=== PATIENT | female | born 1965 | race Caucasian/White ===

== ENCOUNTER 2020-08-24 10:27 | Emergency (ER) | payer MEDICAID, SELFPAY ==
[2020-08-24] VITALS (9 sets, daily range): BP systolic 134–173; BP diastolic 82–125; PULSE 68–105; RESP 17–20; TEMP 36.2; O2SAT 96–99
--- NOTE | 2020-08-24 10:38 | ED.GENADUL_ITS ---
Discharge Plan Disposition Patient Disposition: HOME Condition: Good Discharge Details Clinical Impression: Abdominal pain Primary Care Provider: Maddie Fuller ED Provider: Irwin To Franklin Meds and New Rx's Prescriptions: New metoclopramide HCl 10 mg tablet,disintegrating 10 mg PO Q6H Qty: 30 RF: 0 sucralfate [Carafate] 100 mg/mL suspension 10 ml PO QACHS Qty: 420 RF: 0 lansoprazole 30 mg tablet,disintegrat, delay rel 30 mg PO DAILY Qty: 30 RF: 0 Discontinued naproxen sodium [Aleve] 220 mg Tablet 220 mg PO BID PRNRF: 0 Discharge Instructions Instructions: Abdominal Pain (ED) Additional Instructions: At this point I suspect your abdominal complaints are likely acid related in nature. Recommend discontinuing use of nonsteroidal medications. Occasional use of Tylenol is okay. Discontinue alcohol consumption. Cut back on tobacco use. Start medications as directed. Follow-up with primary care in 2 weeks for recheck. Return to ED if worse pain, persistent vomiting, fever, other concerns. Referrals: Maddie Fuller, [employer] [Primary Care Provider] - Medical Decision Making Patient presenting with abdominal pain. Given her alcohol use, smoking, nonsteroidal use and presentation suspect acid related disease/ulcer. Consider pancreatitis, gallbladder disease, liver disease. Will place IV and check laboratory studies. Will treat with Reglan, Protonix, Carafate. 11:45 - Patient feels much better after medications. Laboratory studies unremarkable. Sodium and chloride a little low but nothing of clinical significance. LFTs and lipase normal. Blood count normal. Suspect acid related disease as cause of discomfort, nausea, early satiety. We will continue medications on outpatient basis and have her follow-up with primary care. Discontinue nonsteroidal use. Decrease alcohol and tobacco use if possible. Would pick one to start with and she feels she can stop drinking alcohol without much difficulty. Smoking may be harder for her. Return to ED for chest pain, shortness of breath, new or worsening abdominal pain, persistent vomiting, other concerns. Lab Data Lab results reviewed: Yes I reviewed the patient's lab results. HPI General Mode of arrival: ambulatory . Date/Time Provider Initiated Documentation: 08/24/20 10:27 . Limitations to Documentation: no limitations . Information obtained by: patient and RN notes reviewed . HPI Narrative: Patient presents to the ED with abdominal pain. Patient reports having GI bug couple weeks ago with vomiting and diarrhea. She seemingly got better from this, but subsequently has developed episodic upper abdominal pain that radiates into the back and down into her lower abdomen. It is associated with a fairly persistent nausea. She has marked decrease in appetite. Eating food actually makes her feel worse. She is able to tolerate fluids relatively well. She continues to drink alcohol 4-6 beers a day. She smoked. She takes Aleve on a daily basis. She does not drink much caffeine. She denies any fever, cough, chest pain, shortness of breath. She reports pain being severe last night and was unable to sleep. She denies any prior surgery. She denies any significant medical problems and does not take prescription medications. She does see primary care on a fairly regular basis. Related Data Home Medications Medication Instructions Recorded Confirmed lansoprazole 30 mg PO DAILY #30 tab 08/24/20 metoclopramide HCl 10 mg PO Q6H #30 tab 08/24/20 sucralfate [Carafate] 10 ml PO QACHS #420 ml 08/24/20 Previous Rx's Medication Instructions Recorded lansoprazole 30 mg PO DAILY #30 tab 08/24/20 metoclopramide HCl 10 mg PO Q6H #30 tab 08/24/20 sucralfate [Carafate] 10 ml PO QACHS #420 ml 08/24/20 Allergies Allergy/AdvReac Type Severity Reaction Status Date / Time No Known Allergies Allergy Unverified 08/24/20 10:33 General Stated Complaint: Abd Prob LAILA: 3 Review of Systems Narrative: As documented in HPI otherwise negative as below. Const: no fever, chills, weakness Resp: no cough, SOB, pleuritic pain CV: no CP, diaphoresis, edema, syncope GI: no vomiting, diarrhea Neuro: no headache, numbness, focal weakness, confusion [facility] Medical History No significant past medical history Surgical History No significant past surgical history Family History Mother No problems noted. Father No problems noted. Sister No problems noted. Brother No problems noted. Daughter No problems noted. Daughter No problems noted. FAMILY HISTORY Arthritis Social History Smoking/Tobacco Use Status: Current every day Tobacco Type: cigarettes Smoking risk assessment performed?: Yes Alcohol Intake: current Alcohol Intake frequency: 3 or more drinks per day Alcohol type: beer Drug use: Daily Substance use type: marijuana Do you feel safe at home: Yes Do you feel safe in your relationship?: Yes Exam Narrative Exam Narrative: Const: WDWN female in NAD. HEENT: NC/AT. Normal facial exam. Eyes: Normal conjunctiva and sclera. Neck: Supple. Trachea midline. Lungs: Normal respiratory effort. Lungs are clear. Cor: RRR without murmur/gallop. Good radial pulses. GI: Soft. NT/ND. No guarding or rebound. Neuro: A+O x 3. Normal speech, mentation, gait. Cranial nerves II - XII grossly intact. No gross motor or sensory deficit. Ext: No C/C/E. Skin: Warm and dry without rash. Course Vital Signs Vital signs: Vital Signs Temperature 97.2 F L 08/24/20 10:30 Pulse 105 H 08/24/20 10:30 Respiratory Rate 20 08/24/20 10:30 Blood Pressure 173/125 H 08/24/20 10:30 Pulse Oximetry 99 08/24/20 10:30 Temperature 97.2 F L 08/24/20 10:30 Temperature Source Skin 08/24/20 10:30 Pulse 105 H 08/24/20 10:30 Respiratory Rate 20 08/24/20 10:30 Respiratory Effort Non-Labored 08/24/20 10:33 Blood Pressure 173/125 H 08/24/20 10:30 Blood Pressure Position Sitting 08/24/20 10:30 Pulse Oximetry 99 08/24/20 10:30 Oxygen Delivery Method Room Air 08/24/20 10:30 Oxygen Flow Rate 0 08/24/20 10:30 Pain Level 10 08/24/20 10:30
[2020-08-24] MEDS: Sucralfate 1 GM TAB PO (11:05)
[2020-08-24] MEDS: Pantoprazole 40 MG VIAL IVP (11:05)
[2020-08-24] MEDS: Normal Saline 50 ML 200 ML (11:05)
[2020-08-24] MEDS: Metoclopramide 10 MG/2 ML VIAL IVP (11:05)
[2020-08-24] MEDS: Normal Saline 1,000 ML 1000 ML IV (11:06)
[2020-08-24] MEDS: Normal Saline Flush 10 ML SYR IVP (11:06)
[2020-08-24 11:23] LABS: Abs Immature Grans 0.01 10^3/uL (0.0-0.06); Absolute Basophil Count 0.09 10^3/uL (0.0-0.2); Absolute Eosinophil Count 0.12 10^3/uL (0.0-0.7); Absolute Lymphocyte Count 2.66 10^3/uL (1.2-3.4); Absolute Monocyte Count 0.78 10^3/uL (0.1-0.8); Absolute Neutrophil Count 4.33 10^3/uL (1.2-6.7); Basophils % 1.1; Eosinophils % 1.5; HCT 44.3 % (36.0-46.0); HGB 14.9 g/dL (11.2-15.7); Immature Grans % 0.1; Lymphocytes % 33.3; MCH 31.8 pg (27.0-33.0); MCHC 33.6 % (32.0-36.0); MCV 94.5 fL (80-95); MPV 9.4 fL (8.0-11.0); Monocytes % 9.8; Neutrophils % 54.2; Nucleated RBC 0 %; Platelet Count 338 10^3/uL (130-400); RBC 4.69 10^6/uL (3.93-5.22); RDW 11.9 % (11.7-14.6); RDW-SD 41.2 fL; WBC 7.99 10^3/uL (4.4-10.8)
[2020-08-24 11:39] LABS: ALT 23 U/L (14-59); AST 22 U/L (15-37); Albumin 4.1 g/dL (3.4-5.0); Alkaline Phosphatase 102 U/L (46-116); Anion Gap 7.9 mmol/L (3-11); BUN 16 mg/dL (7-18); Bilirubin, Total 0.5 mg/dL (0.2-1.0); CO2 29.1 mmol/L (21.0-32.0); Calcium 9.3 mg/dL (8.5-10.1); Chloride 97 mmol/L (98-107); Glucose 98 mg/dL (74-106); Lipase 96 U/L (73-393); Magnesium 2.1 mg/dL (1.8-2.4); Potassium 3.7 mmol/L (3.5-5.1); Sodium 134 mmol/L (136-145); Total Protein 7.8 g/dL (6.4-8.2)
== END 2020-08-24 12:10 | disposition home or self-care (01) ==
PROVIDERS: Emergency Provider Emergency Medicine
DX: R10.10 Upper abdominal pain, unspecified (principal); R11.0 Nausea; R68.81 Early satiety; Z79.1 Long term (current) use of non-steroidal anti-inflammatories (NSAID); F10.10 Alcohol abuse, uncomplicated; F17.210 Nicotine dependence, cigarettes, uncomplicated
CPT/HCPCS: 36415; 80053; 83690; 96361; 96374; 96375; 99284; 83735; 85025; J2765

== ENCOUNTER 2020-10-28 17:42 | Outpatient (REF) | payer MEDICAID, SELFPAY ==
--- NOTE | 2020-10-28 14:00 | PAPFT_PTH ---
PATIENT: Tasia Strong LOC: [facility] U#:[id number] AGE/SX: 55/F ROOM: RE10/28/[address]: Maddie Fuller APRN : 1965 BED: DIS: 10/28/2020 SPEC #: [id number] RECD: 10/29/20 12:56 STATUS: RUTH ANN GARSIA #: [id number] CHIKA: 10/28/20 14:[address]: Maddie Fuller DEPT: [facility], [facility] Cytology RECD BY: Snow Smith Tissues: 1 - CX/ENDOCX FOR PAP SMEARS Procedures: PAP THIN PREP/UVM Screening HPV DNA PROBE Comments: [id number]
== END 2020-10-28 17:43 | disposition home or self-care (01) ==
LOC: LBN 17:42
DX: Z12.4 Encounter for screening for malignant neoplasm of cervix (principal); Z11.51 Encounter for screening for human papillomavirus (HPV)
CPT/HCPCS: 88142; 87624

== ENCOUNTER 2020-11-09 01:29 | Outpatient (CLI) | payer MEDICAID, SELFPAY ==
--- NOTE | 2020-11-09 07:15 | DI.MAMMO_ITS ---
EXAM: MG MAMMO SCREENING CLINICAL HISTORY: screening,Z12.39 TECHNIQUE: Bilateral full field digital CC and MLO mammographic images were obtained with 3D tomosyn thesis and utilizing computer aided detection (CAD). COMPARISON: Available for comparison. FINDINGS: Masses/Architectural Distortion: None seen. Microcalcifications: No suspicious pleomorphic-type are seen. Skin Thickening/Nipple Retraction: None. IMPRESSION: 1. No significant interval change with no specific features of malignancy noted. 2. Unless there is more urgent need, screening mammography is recommended, as per [employer] guidelines. BI-RADS Category 1 - Negative Breast Density - Category B - Scattered areas of fibroglandular density Breast density category C or D implies that the patient has dense breast tissue. Dense breast tissue is very common and is not abnormal but dense breast tissue can make it harder to find cancer on a ma mmogram. Also, dense breast tissue may increase their breast cancer risk. This information about the result of the mammogram report was provided to the patient to raise their awareness. Use this report when you speak with the patient about their risks for breast cancer, which includes their family hist ory. At that time, you may recommend for more screening tests (Ultrasound or MRI) as they might be us eful based on their risk. A negative radiographic report should not delay biopsy if a dominant or clinically suspicious mass is present. Up to ten percent of cancers are not identified on mammography. A negative report may reinforce clinical impression. Adenosis and dense breasts may obscure an underlying neoplasm. False positive reports average 6 to 10%. Patient will receive a letter notifying them of these results.
== END 2020-11-09 01:49 ==
DX: Z12.31 Encounter for screening mammogram for malignant neoplasm of breast (principal)
CPT/HCPCS: 77063; 77067

== ENCOUNTER 2022-02-01 02:54 | Outpatient (CLI) | payer MEDICAID, SELFPAY ==
[2022-02-01 13:28] LABS: ALT 23 U/L (14-59); AST 25 U/L (15-37); Albumin 3.9 g/dL (3.4-5.0); Alkaline Phosphatase 70 U/L (46-116); Anion Gap 9.4 mmol/L (3-11); BUN 30 mg/dL (7-18); Bilirubin, Total 0.4 mg/dL (0.2-1.0); CO2 28.6 mmol/L (21.0-32.0); CREATININE 0.7 mg/dL (0.55-1.02); Calcium 8.6 mg/dL (8.5-10.1); Chloride 99 mmol/L (98-107); Glucose 100 mg/dL (74-106); Potassium 4.2 mmol/L (3.5-5.1); Sodium 137 mmol/L (136-145); Total Protein 7.1 g/dL (6.4-8.2)
== END 2022-02-01 02:55 | disposition home or self-care (01) ==
LOC: LOS 02:54
DX: I10 Essential (primary) hypertension (principal); Z00.00 Encounter for general adult medical examination without abnormal findings
CPT/HCPCS: 36415; 80053

== ENCOUNTER 2022-06-07 17:50 | Outpatient (REF) | payer MEDICAID, SELFPAY | END 2022-06-07 17:51 | disposition home or self-care (01) | LOC: LBN 17:50 | PROVIDERS: PCP Nurse Practitioner Family; Visit Provider Nurse Practitioner Family | DX: N89.8 Other specified noninflammatory disorders of vagina (principal) | CPT/HCPCS: 87480; 87510; 87660 ==

== ENCOUNTER 2022-10-30 11:26 | Outpatient (REF) | payer MEDICAID, SELFPAY ==
[2022-11-01 11:45] LABS: COVID-19 RT-PCR UVMMC Result Negative (Negative)
== END 2022-10-30 11:27 | disposition home or self-care (01) ==
LOC: LBN 11:26
PROVIDERS: PCP Nurse Practitioner Family; Visit Provider Nurse Practitioner Family
DX: J06.9 Acute upper respiratory infection, unspecified (principal); Z20.822 Contact with and (suspected) exposure to COVID-19
CPT/HCPCS: U0003

== ENCOUNTER 2022-10-30 13:22 | Outpatient (CLI) | payer MEDICAID, SELFPAY ==
--- NOTE | 2022-10-30 | DI.RAD_ITS ---
Exam(s) XR CHEST 2V PA LATERAL EXAM: XR CHEST 2V PA LATERAL CLINICAL HISTORY: COUGH, R05.8. TECHNIQUE: 2D digital imaging was performed. COMPARISON: None FINDINGS: 2 views: Heart size is normal. The mediastinum is not widened. There is infiltrate in left lower lobe posterior basal segment behind the left side of the heart. No pleural effusions. Opposite-right lung is clear. IMPRESSION: Left lower lobe infiltrate. Stat fax wet read DATA REPOSITORY: RADIATION DOSE DELIVERED:
== END 2022-10-30 13:42 ==
LOC: DI 13:23
PROVIDERS: PCP Nurse Practitioner Family; Visit Provider Nurse Practitioner Family
DX: R05.8 Other specified cough (principal); R91.8 Other nonspecific abnormal finding of lung field
CPT/HCPCS: 71046

== ENCOUNTER 2023-11-13 16:17 | Outpatient (REF) | payer BC, SELFPAY ==
[2023-11-13 21:17] LABS: ALT 25 U/L (14-59); AST 21 U/L (15-37); Albumin 4.2 g/dL (3.4-5.0); Alkaline Phosphatase 88 U/L (46-116); Anion Gap 11.4 mmol/L (3-11); BUN 24 mg/dL (7-18); Bilirubin, Total 0.3 mg/dL (0.2-1.0); CO2 26.6 mmol/L (21.0-32.0); CREATININE 0.7 mg/dL (0.55-1.02); Calcium 8.9 mg/dL (8.5-10.1); Calculated LDL 135 mg/dL (<100); Chloride 105 mmol/L (98-107); Cholesterol 226 mg/dL (<200); Estimated GFR 101.44 (mL/min/1.73m2); Glucose 89 mg/dL (74-106); HDL Cholesterol 60 mg/dL (40-60); Potassium 4.3 mmol/L (3.5-5.1); Sodium 143 mmol/L (136-145); Total Protein 7.5 g/dL (6.4-8.2); Triglyceride 158 mg/dL (<150)
== END 2023-11-13 16:18 | disposition home or self-care (01) ==
LOC: LBN 16:17
PROVIDERS: PCP Nurse Practitioner Family; Visit Provider Nurse Practitioner Family
DX: I10 Essential (primary) hypertension (principal)
CPT/HCPCS: 80053; 80061

== ENCOUNTER → 2025-06-12 15:18 | Outpatient (CLI) | payer BC, SELFPAY ==
--- NOTE | 2025-06-12 14:30 | DI.RAD_ITS ---
Exam(s) XR RIBS LT W PA LAT CHEST CLINICAL HISTORY: trauma, lt side rib pain, R07.89. COMPARISON: CR XR CHEST 2V PA LATERAL from 10/30/2022 TECHNIQUE:: PA and lateral views of the chest and four views of the right ribs were performed. FINDINGS: LUNGS:Vague patchy opacity noted in the right upper lobe on the PA view. Findings could represent focal pneumonia versus pulmonary contusion. No pleural abnormality seen. HEART: Normal size. MEDIASTINUM: Normal. BONES: No acute displaced rib fracture is seen. There is an old left 7th rib fracture. No bony destructive lesion is seen. IMPRESSION: 1. Old left 7th rib fracture. No acute rib fracture is visible. 2. Question of left upper lobe infiltrate versus pulmonary contusion.
== END ==
LOC: DI 15:20
PROVIDERS: PCP Nurse Practitioner Family; Visit Provider Nurse Practitioner Family
DX: R07.89 Other chest pain (principal)
CPT/HCPCS: 71046; 71100